=== PATIENT | male | born 1980 | race African-American/Black ===

== ENCOUNTER 2017-11-01 23:25 | Emergency (ER) | payer SELFPAY ==
[~2017-11-01] VITALS: Ht 175.3 cm; Wt 102.0 kg
[2017-11-01 23:30] VITALS: Ht 175.3 cm; Wt 102.0 kg
[2017-11-02 01:13] LABS: BASOPHIL % 0.3 % (0-2); RED CELL DISTRIBUTION WIDTH 18.6 % (11.5-14.5)
[2017-11-02 01:14] LABS: PLATELET COUNT 509 x10^3mcL (130-400)
[2017-11-02 01:23] LABS: CALCIUM 8.8 mg/dL (8.5-10.1); CARBON DIOXIDE 25.7 mmol/L (21-32); CHLORIDE SERUM 100 mmol/L (98-107); CREATININE SERUM 0.9 mg/dL (0.7-1.3); GFR1 > 60 mL/min; GLUCOSE SERUM 115 mg/dL (74-106); POTASSIUM SERUM 3.4 mmol/L (3.5-5.1); SODIUM SERUM 132 mmol/L (136-145)
[2017-11-02 01:27] LABS: ALBUMIN 3.5 g/dL (3.4-5.0); ALKALINE PHOSPHATASE 78 U/L (46-116); ALT/SGPT 60 U/L (16-63); AST/SGOT 20 U/L (15-37); BILIRUBIN TOTAL 0.4 mg/dL (0.20-1.00); TOTAL PROTEIN, SERUM 7.3 g/dL (6.4-8.2)
[2017-11-02] MEDS ORDERED: ELIQUIS5 MG PO ×2 (02:02→05:44)
[2017-11-02] MEDS ORDERED: ALBUTEROL SULFAT0.51 NEB (02:02)
[2017-11-02] MEDS ORDERED: CARVEDILOL6.25 M1 PO (02:03)
[2017-11-02] MEDS ORDERED: PLA75 PO (02:05)
[2017-11-02] MEDS ORDERED: FLE10 PO (02:05)
[2017-11-02] MEDS ORDERED: COLCRYS0.6 M2 PO (02:05)
[2017-11-02] MEDS ORDERED: CYCLOBENZAPRINE10 MG PO (02:06)
[2017-11-02] MEDS ORDERED: GABAPENTIN800 M1 PO (02:07)
[2017-11-02] MEDS ORDERED: DIAZEPAM10 MG PO ×2 (02:07→05:42)
[2017-11-02] MEDS ORDERED: IRON325 M4 PO (02:07)
[2017-11-02] MEDS ORDERED: LANTUS SOLOS100 U/M1 SQ (02:07)
[2017-11-02] MEDS ORDERED: LOV40I SQ (02:07)
[2017-11-02] MEDS ORDERED: MELOXICAM15 M1 PO ×2 (02:08→05:54)
[2017-11-02] MEDS ORDERED: ROBAXIN500 MG PO (02:08)
[2017-11-02] MEDS ORDERED: MSIR15 PO (02:09)
[2017-11-02] MEDS ORDERED: PROTONIX40 MG PO (02:09)
[2017-11-02] MEDS ORDERED: PREDNISONE50 MG PO ×2 (02:09→06:01)
[2017-11-02] MEDS ORDERED: TRAZODONE50 M1 PO ×2 (02:11→05:33)
[2017-11-02] MEDS ORDERED: COUMADIN7.5 MG PO (02:11)
[2017-11-02] MEDS ORDERED: SUCRALFATE1 GM/10 ML PO (02:11)
[2017-11-02] MEDS ORDERED: [UNRECOGNIZED DRUG - CODE] PO (02:11)
[2017-11-02 03:26] LABS: microscopic required? NO
[2017-11-02 03:48] LABS: UA SPECIFIC GRAVITY 1.025 (1.005-1.035); urine erythrocyte NEGATIVE (NEGATIVE)
[2017-11-02 03:52] LABS: CHOLESTEROL/HDL RATIO 4.1; MAGNESIUM 2.1 mg/dL (1.8-2.4); PHOSPHOROUS 3.8 mg/dL (2.5-4.9)
[2017-11-02 04:02] LABS: T3 TOTAL 0.98 ng/mL
[2017-11-02 04:03] LABS: FREE T4 0.79 ng/dL (0.76-1.46); FREE THYROXINE INDEX 2.1 ug/dL (1.4-4.5); T4(THYROXINE) 5.8 ug/dL (4.7-13.3)
[2017-11-02 04:10] LABS: AMPHETAMINE QUAL UR NONE DETECTED (NEG <=1000)
[2017-11-02] MEDS ORDERED: COUMADIN4 MG PO (05:32)
[2017-11-02] MEDS ORDERED: COREG6.25 M1 PO (05:45)
[2017-11-02] MEDS ORDERED: COLCHICINE0.6 M2 PO (05:48)
[2017-11-02] MEDS ORDERED: RELION NOVOL100 U/M1 SC (05:51)
[2017-11-02] MEDS ORDERED: ROBAXIN-750750 MG PO (05:56)
[2017-11-02] MEDS ORDERED: TETRACYCLINE250 MG PO (06:04)
[2017-11-02 16:57] LABS: BASOPHIL % 0.7 % (0-2)
[2017-11-02 17:10] LABS: PLATELET COUNT 432 x10^3mcL (130-400); RED CELL DISTRIBUTION WIDTH 18.4 % (11.5-14.5)
[2017-11-02 19:12] VITALS: BP 109/48
== END 2017-11-02 19:00 | disposition home or self-care (01) ==
LOC: ED 23:25
PROVIDERS: Emergency Medicine; Student in an Organized Health Care Education/Training Program
DX: R07.9 Chest pain, unspecified (principal); R11.2 Nausea with vomiting, unspecified; D72.829 Elevated white blood cell count, unspecified; I10 Essential (primary) hypertension; E11.9 Type 2 diabetes mellitus without complications; M79.7 Fibromyalgia; G89.29 Other chronic pain; J45.909 Unspecified asthma, uncomplicated
CPT/HCPCS: 82962; 83880; 84439; J2543; J7030; J7512; Q0092